=== PATIENT | female | born 1995 | race Caucasian/White ===

== ENCOUNTER 2016-12-17 08:46 | Emergency (ER) | payer SELFPAY ==
[~2016-12-17] VITALS: Ht 167.6 cm; Wt 49.5 kg
[~2016-12-17 08:46] MED LIST: ACET-2267 PO; CEPH-507 PO; DIPH50CA75 PO; FERR-74 PO; IBUP-1773 PO; PHEN-639 PO; POLY119P5 PO; PREN-148 PO
[2016-12-17 10:06] LABS: BASOPHILS % (AUTO) 0 % (0-10); EOSINOPHILS # (AUTO) 0.1 10^3/uL (0.0-0.3); EOSINOPHILS % (AUTO) 1 % (0-10); LYMPHOCYTES # (AUTO) 1.6 X 10^3 (1.0-4.0); LYMPHOCYTES % (AUTO) 19 % (12-44); MEAN CORPUSCULAR HEMOGLOBIN 29 PG (25-34); MEAN CORPUSCULAR HGB CONC 33 G/DL (32-36); MEAN CORPUSCULAR VOLUME 86 FL (80-99); MEAN PLATELET VOLUME 9.5 FL (7.4-10.4); MONOCYTES # (AUTO) 0.6 X 10^3 (0.0-1.0); MONOCYTES % (AUTO) 7 % (0-12); NEUTROPHILS # (AUTO) 6.4 X 10^3 (1.8-7.8); NEUTROPHILS % (AUTO) 73 % (42-75); PLATELET COUNT 292 10^3/uL (130-400); RED BLOOD COUNT 4.65 10^6/uL (4.35-5.85); RED CELL DISTRIBUTION WIDTH 13.6 % (10.0-14.5); WHITE BLOOD COUNT 8.8 10^3/uL (4.3-11.0)
[2016-12-17 10:25] LABS: ALANINE AMINOTRANSFERASE 13 U/L (0-55); ALBUMIN 4.4 G/DL (3.2-4.5); ANION GAP 10 MMOL/L (5-14); ASPARTATE AMINO TRANSFERASE 15 U/L (5-34); BILIRUBIN,TOTAL 0.7 MG/DL (0.1-1.0); BLOOD UREA NITROGEN 7 MG/DL (7-18); BUN/CREATININE RATIO 10; CALCIUM 9.5 MG/DL (8.5-10.1); CARBON DIOXIDE 22 MMOL/L (21-32); CHLORIDE 106 MMOL/L (98-107); GFR ESTIMATED > 60; GLUCOSE 95 MG/DL (70-105); POTASSIUM 4.1 MMOL/L (3.6-5.0); SODIUM 138 MMOL/L (135-145); TOTAL PROTEIN 7.5 G/DL (6.4-8.2)
--- NOTE | 2016-12-17 10:32 | ED GU-Female ---
General Chief Complaint: -Female Stated Complaint: "FADED BLOOD" APPROX. 7 OR 8WEEKS OB Nursing Triage Note: PT REPORTS SPOTTING SINCE LAST NOC. SHE REPORTS SHE IS APPROX 6 WEEKS . SHE IS ALSO C/O SUPRAPUBIC CRAMPING. SHE DENIES ANY URINARY S/S. Nursing Sepsis Screen: No Definite Risk Source: patient Exam Limitations: no limitations History of Present Illness Time seen by provider: 10:05 Initial Comments Here with report of vaginal bleeding that she states is pinkish discharge noted on wiping both last night and this morning. Last sexual activity was yesterday morning. She is and may be 6-12 weeks along. Last menstrual period was September 28 approximately on her timeframe this year. Denies nausea, vomiting but does complain of some lower abdominal pain and suprapubic pain. Timing/Duration: other (12 hours) Severity/Quality: moderate, cramping Location: suprapubic Radiation: none Activities at Onset: none Prior Genitourinary Problems: none Sexual [place] History: less than 2 months ago, single partner Associated Symptoms: No dysuria, No fever/chills, No loss of bladder control, No lower back pain, No nausea/vomiting, No urinary frequency Allergies and Home Medications Allergies Coded Allergies: No Known Drug Allergies (Unverified , 05/31/15) Home Medications Acetaminophen 500 Mg Tablet, 500 MG PO PRN, (Reported) Ferrous Sulfate 325 Mg Tablet, 325 MG PO DAILY@0700, #30 Ref 0 Prescribed by: MELITON MARCIAL on 06/21/16 0542 Ibuprofen 600 Mg Tablet, 600 MG PO Q6H PRN for PAIN, #60 Ref 0 Prescribed by: MELITON MARCIAL on 06/21/16 0542 Vit #76/Iron,Carb/FA 1 Each Tablet, 1 EACH PO, (Reported) Constitutional: see HPI, No chills, No fever EENTM: no symptoms reported Respiratory: no symptoms reported Cardiovascular: no symptoms reported Gastrointestinal: see HPI, abdominal pain (suprapubic), No constipation, No diarrhea Genitourinary: no symptoms reported Musculoskeletal: no symptoms reported All Other Systemes Reviewed Negative Unless Noted: Yes Past Qplwdpj-Tnnwtt-Btmodo Hx Patient Social History Alcohol Use: Denies Use Recreational Drug Use: No Smoking Status: Never a Smoker 2nd Hand Smoke Exposure: No Recent Foreign Travel: No Contact w/Someone Who Travel: No Recent Infectious Disease Expo: No Recent Hopitalizations: No Immunizations Up To Date Date of Influenza Vaccine: May 20, 2016 Seasonal Allergies Seasonal Allergies: No Surgeries HX Surgeries: No Respiratory Hx Respiratory Disorders: No Cardiovascular Hx Cardiac Disorders: No Neurological Hx Neurological Disorders: No Reproductive System Hx : 2 Hx Para: 1 Genitourinary Hx Genitourinary Disorders: No Gastrointestinal Hx Gastrointestinal Disorders: No Musculoskeletal Hx Musculoskeletal Disorders: No Endocrine Hx Endocrine Disorders: No HEENT HX ENT Disorders: No Cancer Hx Cancer: No Psychosocial Hx Psychiatric Problems: No Integumentary HX Skin/Integumentary Disorder: No Blood Transfusions Hx Blood Disorders: No Adverse Reaction to a Blood Tr: No Reviewed Nursing Assessment Reviewed/Agree w Nursing PMH: Yes Family Medical History Significant Family History: No Pertinent Family Hx Family Medial History: Patient reports no known family medical history. Physical Exam Vital Signs Vital Sign - Last 12Hours 12/17/16 09:40 Temp 97.2 Pulse 74 Resp 16 B/P (MAP) 109/68 Pulse Ox 98 O2 Delivery Room Air Capillary Refill : Less Than 3 Seconds General Appearance: WD/WN, no apparent distress HEENT: PERRL/EOMI, pharynx normal Neck: full range of motion, supple Cardiovascular: regular rate, rhythm, no murmur Respiratory: lungs clear, normal breath sounds Gastrointestinal: non tender, soft Pelvic: normal adnexa, discharge (small amount of clear to pink discharge at the cervical os), tender w/ cervical motion Back: normal inspection, no CVA tenderness, no vertebral tenderness Extremities: non-tender, normal inspection Neurologic/Psychiatric: alert, oriented x 3 Skin: normal color, warm/dry Progress/Results/Core Measures Results/Orders Lab Results Laboratory Tests Test 12/17/16 09:58 12/17/16 10:35 12/17/16 12:03 Range/Units White Blood Count 8.8 4.3-11.0 10^3/uL Red Blood Count 4.65 4.35-5.85 10^6/uL Hemoglobin 13.4 11.5-16.0 G/DL Hematocrit 40 35-52 % Mean Corpuscular Volume 86 80-99 FL Mean Corpuscular Hemoglobin 29 25-34 PG Mean Corpuscular Hemoglobin Concent 33 32-36 G/DL Red Cell Distribution Width 13.6 10.0-14.5 % Platelet Count 292 130-400 10^3/uL Mean Platelet Volume 9.5 7.4-10.4 FL Neutrophils (%) (Auto) 73 42-75 % Lymphocytes (%) (Auto) 19 12-44 % Monocytes (%) (Auto) 7 0-12 % Eosinophils (%) (Auto) 1 0-10 % Basophils (%) (Auto) 0 0-10 % Neutrophils # (Auto) 6.4 1.8-7.8 X 10^3 Lymphocytes # (Auto) 1.6 1.0-4.0 X 10^3 Monocytes # (Auto) 0.6 0.0-1.0 X 10^3 Eosinophils # (Auto) 0.1 0.0-0.3 10^3/uL Basophils # (Auto) 0.0 0.0-0.1 10^3/uL Sodium Level 138 135-145 MMOL/L Potassium Level 4.1 3.6-5.0 MMOL/L Chloride Level 106 98-107 MMOL/L Carbon Dioxide Level 22 21-32 MMOL/L Anion Gap 10 5-14 MMOL/L Blood Urea Nitrogen 7 7-18 MG/DL Creatinine 0.70 0.60-1.30 MG/DL Estimat Glomerular Filtration Rate > 60 BUN/Creatinine Ratio 10 Glucose Level 95 70-105 MG/DL Calcium Level 9.5 8.5-10.1 MG/DL Total Bilirubin 0.7 0.1-1.0 MG/DL Aspartate Amino Transf (AST/SGOT) 15 5-34 U/L Alanine Aminotransferase (ALT/SGPT) 13 0-55 U/L Alkaline Phosphatase 70 40-136 U/L Total Protein 7.5 6.4-8.2 G/DL Albumin 4.4 3.2-4.5 G/DL Human Chorionic Gonadotropin, Quant 51264 H <5 MIU/ML Urine Color YELLOW Urine Clarity SLIGHTLY CLOUDY Urine pH 8 5-9 Urine Specific [place] 1.015 L 1.016-1.022 Urine Protein NEGATIVE NEGATIVE Urine Glucose (UA) NEGATIVE NEGATIVE Urine Ketones NEGATIVE NEGATIVE Urine Nitrite NEGATIVE NEGATIVE Urine Bilirubin NEGATIVE NEGATIVE Urine Urobilinogen NORMAL NORMAL MG/DL Urine Leukocyte Esterase 1+ H NEGATIVE Urine RBC (Auto) 5+ H NEGATIVE Urine RBC 0-2 /HPF Urine WBC 2-5 /HPF Urine Squamous Epithelial Cells TNTC H /HPF Urine Crystals NONE /LPF Urine Bacteria NEGATIVE /HPF Urine Casts NONE /LPF Urine Mucus NEGATIVE /LPF Urine Culture Indicated NO Micro Results Microbiology 12/17/16 Wet Prep - Final, Complete My Orders Orders - LUIS MULLINS MD Cbc With Automated Diff (12/17/16 09:50) Hcg,Quantitative (12/17/16 09:50) Comprehensive Metabolic Panel (12/17/16 09:50) Wet Prep (12/17/16 10:30) Neisseria Gonorrhea Dna (12/17/16 10:30) Chlamydia Dna (12/17/16 10:30) Ua Culture If Indicated (12/17/16 10:30) Us Ob Transvaginal [id number] (12/17/16 11:24) Vital Signs/I&O Vital Sign - Last 12Hours 12/17/16 09:40 Temp 97.2 Pulse 74 Resp 16 B/P (MAP) 109/68 Pulse Ox 98 O2 Delivery Room Air Blood Pressure Mean: 82 Progress Note : Progress Note Seen and evaluated. Labs, UA, pelvic exam and ultrasound ordered. Blood type A positive. Bedside ultrasound was performed and showed a sac and structure that is approximately 6-2/7 by crown-rump length. No heart tone noted. Quantitative hCG greater than 20,000. Formal ultrasound ordered and is pending. Pelvic exam complete. 1255: Ultrasound notes similar findings as bedside ultrasound. Patient does have positive clue cells on wet prep. We'll initiate treatment for bacterial vaginosis. She was follow-up with the women's health clinic. She is not sure which physician she will see him in the clinic I will send a copy of this note to the clinic. Discharged home with return precautions. Patient verbalize understanding instructions and agreement with plan. Patient informed of possibility of both miscarriage and early with yet undetectable heart sounds that may progress normally. Diagnostic Imaging Diagonstic Imaging: Ultrasound Plain Films/CT/US/NM/MRI: pelvis Comments VIA [facility]. [place], [place] NAME: ADRIANE WEBER [facility] REC#: [id number] PT STATUS: REG ER : 1995 PHYSICIAN: LUIS MULLINS MD ADMIT DATE: 12/17/16/ER Draft Date of Exam:12/17/16 US OB TRANSVAGINAL [id number] INDICATION: Threatened EXAMINATION: OB sonogram There appears to be an intrauterine gestational sac. Yolk sac is visible and a small pole is seen. The mean sac diameter correspond to a gestational age of 6 weeks and 4 days. There is no heart beat detected. IMPRESSION: There appears to be an intrauterine of approximately 6 weeks 4 days gestation with suspected small pole although no heartbeat yet seen. Followup hCG levels and/or ultrasound is indicated. Dictated on workstation # [id number] Dict: 12/17/16 1240 Trans: 12/17/16 1248 [facility] [id number] Interpreted by: LUIS ESCOBAR Electronically signed by: Departure Impression Impression: Primary Impression: Threatened miscarriage in early Additional Impression: Bacterial vaginosis Disposition: HOME, SELF-CARE Condition: Stable Departure-Patient Inst. Decision time for Depature: 13:01 Referrals: NO,LOCAL PHYSICIAN (PCP) Primary Care Physician SHIRLEY KISER DO Patient Instructions: Bacterial Vaginosis (DC), Threatened Miscarriage (DC) Add. Discharge Instructions: All discharge instructions reviewed with patient and/or family. Voiced understanding. Take medications as directed. Follow-up with the women's clinic this week for recheck and further evaluation. Return for worse pain, fever, vomiting, weakness, breathing problems or other concerns as needed. You'll also need to return for bleeding greater than 2 pads per hour for more than 2 hours or markedly increasing abdominal pain. Scripts Metronidazole (Metronidazole) 500 Mg Tablet 500 MG PO BID, #13 TAB 0 Refills Prov: LUIS MULLINS MD 12/17/16 Copy Copies To 1: SHIRLEY KISER TIMOTHY D MD Dec 17, 2016 10:32
[2016-12-17 10:42] LABS: BILIRUBIN,URINE NEGATIVE (NEGATIVE); KETONES,URINE NEGATIVE (NEGATIVE); LEUKOCYTE ESTERASE ,URINE 1+ (NEGATIVE); NITRITE,URINE NEGATIVE (NEGATIVE); PH,URINE 8 (5-9); PROTEIN,URINE NEGATIVE (NEGATIVE); UROBILINOGEN,URINE NORMAL (NORMAL)
[2016-12-17 10:51] LABS: SQUAMOUS EPITHELIAL CELL,UR TNTC /HPF
--- NOTE | 2016-12-17 12:49 | Diagnostic Imaging Report ---
INDICATION: Threatened EXAMINATION: OB sonogram There appears to be an intrauterine gestational sac. Yolk sac is visible and a small pole is seen. The mean sac diameter correspond to a gestational age of 6 weeks and 4 days. There is no heart beat detected. IMPRESSION: There appears to be an intrauterine of approximately 6 weeks 4 days gestation with suspected small pole although no heartbeat yet seen. Followup hCG levels and/or ultrasound is indicated. Dictated by: Dictated on workstation # [id number]
[2016-12-17] MEDS ORDERED: METR500T21 PO (13:05)
[2016-12-17 13:17] VITALS: BP 109/68
== END 2016-12-17 13:17 | disposition home or self-care (01) ==
LOC: EDUNIT# 08:46 → ER 08:49
DX: O20.0 Threatened abortion (principal); O23.591 Infection of other part of genital tract in pregnancy, first trimester; Z3A.01 Less than 8 weeks gestation of pregnancy
CPT/HCPCS: 36415; 76817; 80053; 81000; 84702; 85025; 87210; 87491; 87591; 99284

== ENCOUNTER 2020-07-05 07:17 | Emergency (ER) | payer MEDICAID ==
[~2020-07-05] VITALS: Ht 160 cm; Wt 27.0 kg
[~2020-07-05 07:17] MED LIST changes: -FERR-74 PO; +FERR325T18 PO; +METR-145 PO
[2020-07-05 07:20] VITALS: BP 107/74
[2020-07-05] MEDS ORDERED: OMEP20CA18 (07:36)
[2020-07-05] MEDS ORDERED: SMZ/TMP (07:36)
[2020-07-05] MEDS ORDERED: MEDR150V4 (07:36)
[2020-07-05] MEDS ORDERED: FAMOTIDINE 20 MG (PEPCID) TABLET PO STA (07:39)
[2020-07-05] MEDS ORDERED: SUCRALFATE 1 GM (CARAFATE) TAB PO ONE (07:45)
--- NOTE | 2020-07-05 07:45 | ED Abdominal Pain ---
General Chief Complaint: Abdominal/GI Problems Stated Complaint: VOMITING / ABD PAIN Nursing Triage Note: ARRIVED VIA AMB TO ROOM 07. STATES SHE JUST GOT BACK FROM A ROAD TRIP AND IS HAVING ABD BURNING. THINKS SHE HAS A ULCER AND HAS HAD THIS PROBLEM FOR A YEAR. HAS AN APPT WITH A IN [place] NEXT MONTH. CURRENTLY ON A ABX FOR A UTI. Sepsis Screen: No Definite Risk Source of Information: Patient Exam Limitations: No Limitations History of Present Illness Date Seen by Provider: Jul 05, 2020 Time Seen by Provider: 07:33 Initial Comments Here with report of stomach acid problems. She is currently on omeprazole 20 mg daily for this that she has taken intermittently. Just returned from a road trip and thought she might be a little dehydrated so has been drinking Gatorade. Denies vomiting currently or blood in her stool. Does have appointment with GI specialist in the next month or so. She did not know what else to take and presented here for further evaluation. Denies fever or chills or other concerns. Timing/Duration: 12 Hours, Getting Worse Severity/Quality: Moderate, Burning Location: Epigastric Radiation: No Radiation Activities at Onset: None Modifying Factors: Worsens With Eating Associated Symptoms: No Back Pain, No Chest Pain, No Fever/Chills, No Shortness of Air Allergies and Home Medications Allergies Coded Allergies: No Known Drug Allergies (Unverified , 05/31/15) Patient Home Medication List Home Medication List Reviewed: Yes Review of Systems Review of Systems Constitutional: see HPI Respiratory: Denies Cough, Denies Shortness of Air Cardiovascular: No Symptoms Reported Gastrointestinal: See HPI, Abdominal Pain, Nausea Genitourinary: No Symptoms Reported Musculoskeletal: no symptoms reported Psychiatric/Neurological: Denies Weakness; Other (Increased stressors with family) Past Ltxkqwo-Cxmfhw-Xwjeft Hx Past Med/Social Hx: Reviewed Nursing Past Med/Soc Hx Patient Social History Alcohol Use: Denies Use Recreational Drug Use: No Smoking Status: Never a Smoker 2nd Hand Smoke Exposure: No Recent Foreign Travel: No Contact w/Someone Who Travel: No Recent Infectious Disease Expo: No Recent Hopitalizations: No Immunizations Up To Date Date of Influenza Vaccine: May 20, 2016 Seasonal Allergies Seasonal Allergies: No Past Medical History Surgeries: Yes Tonsillectomy Respiratory: No Cardiac: No Neurological: No Genitourinary: No Gastrointestinal: No Musculoskeletal: No Endocrine: No HEENT: No Cancer: No Psychosocial: No Integumentary: No Blood Disorders: No Adverse Reaction/Blood Tranf: No Family Medical History Reviewed Nursing Family Hx Patient reports no known family medical history. No Pertinent Family Hx Physical Exam Vital Signs Vital Signs - First Documented 07/05/20 07:20 Temp 35.6 Pulse 108 Resp 16 B/P (MAP) 107/74 (85) Pulse Ox 96 O2 Delivery Room Air Capillary Refill : Less Than 3 Seconds Height/Weight/BMI Height: 5'6.00" Weight: 109lbs. 0.4oz. 49.006999ww; 10.00 BMI Method:Actual General Appearance: WD/WN, no apparent distress Respiratory: lungs clear, normal breath sounds Cardiovascular: regular rate, rhythm, no murmur Gastrointestinal: No guarding, No rebound; tenderness (Mild epigastric tenderness to palpation) Back: normal inspection, no CVA tenderness, no vertebral tenderness Neurologic/Psychiatric: alert, oriented x 3 Skin: normal color, warm/dry Progress/Results/Core Measures Results/Orders Vital Signs/I&O 07/05/20 07:20 Temp 35.6 Pulse 108 Resp 16 B/P (MAP) 107/74 (85) Pulse Ox 96 O2 Delivery Room Air Blood Pressure Mean: 85 Progress Progress Note : Progress Note Seen and evaluated. The symptoms have been going on for about a year intermittently and she has follow-up set. She has omeprazole and will continue that. Pepcid 20 mg p.o. now as well as Carafate 1 g p.o. now. I did talk with her about the importance of follow-up as this will provide better clarity for her issues. The GI specialist can also evaluate for endoscopy if indicated. This was discussed with her as well. I did discuss with her that she needs to take her omeprazole every day and not just intermittently for right now anyway. She states that she will. We will try the addition of Pepcid and Carafate and she will continue follow-up. Discharged home with return precautions. Patient verbalized understanding of instructions and agreement with plan. Departure Impression Primary Impression: Epigastric abdominal pain Additional Impression: Acid reflux disease Qualified Codes: K21.9 - Gastro-esophageal reflux disease without e sophagitis Disposition: 01 HOME, SELF-CARE Condition: Stable Departure-Patient Inst. Decision time for Depature: 07:45 Referrals: NO,LOCAL PHYSICIAN (PCP/Family) Primary Care Physician Patient Instructions: Severe Abdominal Pain, Adult (DC), Acid Reflux and GERD in Adults (DC) Add. Discharge Instructions: All discharge instructions reviewed with patient and/or family. Voiced understanding. You should take your omeprazole daily. You may also take Pepcid or the generic famotidine, 20 mg once or twice a day as needed for acid reflux or burning. Take the other medications as directed. Return for worse pain, fever, vomiting, blood in your vomit or stool or other concerns as needed. It is very important that you keep follow-up appointment with the GI specialist as scheduled for further evaluation as indicated. Avoid acid producing foods or drinks and follow a light diet for at least for the next week or 2 and then advance as tolerated. Scripts Sucralfate (Sucralfate) 1 Gm Tablet 1 GM PO ACHS, #56 TAB 1 Refill Chew tablet to a slurry and then swallow Prov: LUIS MULLINS MD 07/05/20 LUIS MULLINS MD Jul 05, 2020 07:45
[2020-07-05] MEDS ORDERED: SUCR1TAB PO (07:47)
== END 2020-07-05 07:53 | disposition home or self-care (01) ==
LOC: EDUNIT# 07:17 → ER 07:18
DX: K21.9 Gastro-esophageal reflux disease without esophagitis (principal)
CPT/HCPCS: 99283